=== PATIENT | male | born 1960 | race Caucasian/White ===

== ENCOUNTER 2020-08-02 15:05 | Inpatient (IN) | payer MEDICAID ==
[~2020-08-02] VITALS: Ht 180.3 cm; Wt 96.6 kg
[2020-08-02 20:40] VITALS: BP 153/82
[2020-08-02] MEDS ORDERED: Z GUARD REMEDY 2 OZ OINT TP PRN (22:00)
[2020-08-02] MEDS ORDERED: ONDANSETRON HCL/PF 4 MG/2 ML VIAL IVP PRN (22:00)
[2020-08-02] MEDS ORDERED: ZOLPIDEM TARTRATE 5 MG TABLET PO PRN (22:00)
[2020-08-02] MEDS: IV NS 0.9% 1,000 ML IV PRN (22:44)
[2020-08-02] MEDS: ENOXAPARIN SODIUM 40 MG/0.4 ML DISP.SYRIN SQ SCH (22:45)
--- NOTE | 2020-08-02 23:17 | NUR ---
MS/TELE/RN AT 2030, RECEIVED PATIENT FROM [facility] VIA [facility]. PATIENT WAS AWAKE, ALERT, ORIENTED, COMFORTABLE, NO C/O PAIN, NO DISTRESS NOTED. DR. NICK ARTEAGA WAS NOTIFIED OF PATIENT'S ARRIVAL TO THE FLOOR, ORDERS WERE NOTED AND CARRIED OUT. ADMISSION WAS DONE PER PROTOCOL, PATIENT REFUSED SKIN ASSESSMENT, PLAN OF CARE WAS DISCUSSED, NPO AFTER MIDNIGHT FOR POSSIBLE PROCEDURE TOMORROW, PATIENT VERBALISED UNDERSTANDING AND AGREEMENT TO THE PLAN OF CARE, TAUGHT THE USE OF CALL LIGHT AND ENCOURAGED TO CALL FOR ANY ASSISTANCE, PATIENT VERBALISED UNDERSTANDING, PLACED CALL LIGHT WITHIN REACH. FALL PRECAUTIONS PER PROTOCOL, WILL MONITOR.
[2020-08-02] MEDS: NITROGLYCERIN PACKET 1 GM PACKET TOP SCH (23:58)
[2020-08-03] VITALS: BP 143/84
[2020-08-03] MEDS ORDERED: AMLO-213 PO (01:39)
[2020-08-03] MEDS: ACETAMINOPHEN 325 MG TABLET PO PRN ×2 (03:27→08:27)
--- NOTE | 2020-08-03 03:40 | NUR ---
MS/TELE/RN TEMP= 102.5, TYLENOL 650 MG PO WAS GIVEN, COOLING MEASURES STARTED. DR. ROMERO WAS NOTIFIED VIA SECURE MESSAGING. WILL MONITOR. TEMPERATURE.
[2020-08-03 04:00] VITALS: BP 153/86
--- NOTE | 2020-08-03 04:09 | NUR ---
MS/TELE/RN RECEIVED ORDER OF BLOOD CULTURE FROM DR. NICK ARTEAGA. ORDER CARRIED OUT.
[2020-08-03 04:55] LABS: BASOPHILS # (AUTO) 0.1 /CMM (0.0-0.2); BASOPHILS % (AUTO) 0.8 % (0.0-2.0); EOSINOPHILS % (AUTO) 0.2 % (0.0-6.0); HEMATOCRIT 37 % (39-51); HEMOGLOBIN 12.4 g/dL (13.5-17.5); LYMPHOCYTES # (AUTO) 0.6 /CMM (0.8-4.8); LYMPHOCYTES % (AUTO) 7.7 % (20.0-44.0); MEAN CORPUSCULAR HGB CONC 34 g/dl (31.0-36.0); MEAN CORPUSCULAR VOLUME 103 fL (80-96); MONOCYTES # (AUTO) 0.4 /CMM (0.1-1.30); MONOCYTES % (AUTO) 4.9 % (2.0-12.0); NEUTROPHILS # (AUTO) 6.4 /CMM (1.8-8.9); NEUTROPHILS % (AUTO) 86.4 % (43.0-81.0); PLATELET COUNT (AUTO) 253 /CMM (150-450); RED BLOOD CELL COUNT(AUTO) 3.59 MIL/uL (4.5-6.0); WHITE BLOOD COUNT (AUTO) 7.4 K/uL (4.3-11.0)
[2020-08-03 05:32] LABS: ALBUMIN 2.9 g/dL (3.4-5.0); BILIRUBIN,TOTAL 0.9 mg/dL (0.2-1.0); CALCIUM, SERUM 8.5 mg/dL (8.5-10.1); MAGNESIUM 1.7 mg/dL (1.8-2.4); PHOSPHORUS 2.8 mg/dL (2.5-4.9); POTASSIUM 3.5 mmol/L (3.5-5.1); TOTAL PROTEIN, SERUM 6.6 g/dL (6.4-8.2)
[2020-08-03 05:43] LABS: THYROID STIMULATING HORMONE 1.148 uIU/mL (0.358-3.74)
[2020-08-03] MEDS: NITROGLYCERIN PACKET 1 GM PACKET TOP SCH ×3 (05:54→17:44)
--- NOTE | 2020-08-03 06:01 | NUR ---
MS/TELE/RN TEMP 99.7, CONTINUE WITH COOLING MEASURES. PATIENT IS AWAKE, ALERT, ORIENTED, COMFORTABLE, NO SIGNS OF DISTRESS NOTED, IVF INFUSING, ALL NEEDS ATTENDED AT THIS TIME, WILL CONTINUE TO MONITOR.
[2020-08-03 08:00] VITALS: BP 134/72
--- NOTE | 2020-08-03 08:00 | NUR ---
RN OPENING NOTE PT IS AWAKE IN BED RESTING. A/O X4 AND GERMAN SPEAKING. CURRENTLY ON RA WITH NO RESPIRATORY DISTRESS PRESENT. O2 SAT >95%. ON EXTERNAL GENERAL REPAIR MECHANIC. NO EDEMA PRESENT. SELF AMBULATORY WITH BATHROOM PRIVILEGES. PT EXPLAINED NO SKIN ISSUES BUT REFUSED SKIN ASSESSMENT. IV PRESENT ON L FA 20G AND FLUSHES WELL. TYLENOL GIVEN FOR 100.2 F TEMPERATURE. SAFETY MEASURES IN PLACE. SIDE RAILS RAISED. BED LOWERED. CALL LIGHT WITHIN REACH. WILL CONTINUE TO MONITOR.
[2020-08-03 08:16] LABS: IRON, SERUM 11 ug/dl (50-175); TOTAL IRON BINDING CAPACITY 251 ug/dl (250-450)
[2020-08-03] MEDS: Magnesium 1GM/D5W 100ML PREMIX 100 ML IV SCH ×2 (08:27→10:03)
[2020-08-03] MEDS: ASPIRIN EC 81 MG TABLET.DR PO SCH (08:27)
[2020-08-03] MEDS: PANTOPRAZOLE 40 MG TABLET.DR PO SCH (08:27)
[2020-08-03 08:49] LABS: FERRITIN 688 ng/mL (8-388)
[2020-08-03] MEDS ORDERED: LORAZEPAM INJ 2 MG/ML VIAL IV PRN (09:00)
[2020-08-03] MEDS: FOLIC ACID 1 MG TABLET PO SCH (10:03)
[2020-08-03] MEDS ORDERED: IOHEXOL-350 100 ML VIAL IV ONE ×2 (11:41→12:24)
[2020-08-03] MEDS ORDERED: NITROGLYCERIN 0.4 MG/TAB BOTTLE ONE (11:41)
[2020-08-03] MEDS ORDERED: METOPROLOL TARTRATE INJ 5 MG/5 ML AMPUL ONE ×4 (11:41→12:05)
[2020-08-03] MEDS ORDERED: IV NS 0.9% 250 ML IV ONE (11:41)
[2020-08-03] MEDS ORDERED: CT SWABBABLE VALVE TRANS SET 1 EA INFUS.SET MC ONE (11:41)
[2020-08-03] MEDS: METOPROLOL TARTRATE 50 MG TABLET PO SCH ×2 (11:44→17:44)
--- NOTE | 2020-08-03 11:44 | NUR ---
RN NOTE PT TAKEN FOR CTCA. CONSENTS SIGNED. UNABLE TO GIVE PO MEDS FOR 1200.
[2020-08-03] MEDS: METOPROLOL TARTRATE INJ 5 MG/5 ML AMPUL IVP PRN ×10 (11:50→12:35)
[2020-08-03] MEDS ORDERED: NITROGLYCERIN 0.4 MG/TAB BOTTLE SL ONE (12:00)
[2020-08-03] MEDS ORDERED: METOPROLOL TARTRATE INJ 5 MG/5 ML AMPUL IVP ONE (12:30)
--- NOTE | 2020-08-03 12:41 | NUR ---
Report given to CAMRYN Walker for GERARDO. Patient is transported to [facility] via wheelchair in stable condition.
[2020-08-03] MEDS: MORPHINE SULFATE INJ 2 MG/ML DISP.SYRIN IV PRN ×2 (12:55→17:44)
[2020-08-03 16:00] VITALS: BP 135/82
--- NOTE | 2020-08-03 18:14 | NUR ---
RN CLOSING NOTE PT IS AWAKE IN BED RESTING. A/O X4 AND ALBANIAN SPEAKING. CURRENTLY ON RA WITH NO RESPIRATORY DISTRESS PRESENT. O2 SAT >95%. ON EXTERNAL MANAGER FURNITURE. NO EDEMA PRESENT. SELF AMBULATORY WITH BATHROOM PRIVILEGES. PT EXPLAINED NO SKIN ISSUES BUT REFUSED SKIN ASSESSMENT. IV PRESENT ON L FA 20G AND FLUSHES WELL. IV PRESENT OF R FA 18G AND FLUSHES WELL. SAFETY MEASURES IN PLACE. SIDE RAILS RAISED. BED LOWERED. CALL LIGHT WITHIN REACH. REPORT TO BE GIVEN TO NIGHT NURSE GERARDO.
[2020-08-03 20:00] VITALS: BP 131/81
--- NOTE | 2020-08-03 20:55 | NUR ---
MS/TELE/RN BLOOD CULTURE AEROBIC BOTTLE RESULT IS GRAM NEGATIVE RODS, INFORMED DR. MOSS, ORDER OF PIPERACILLIN/TAZOBACTAM 3.375 IVPB Q 6 HOURS WAS NOTED IN THE CHART. PER DR. MOSS HE CALLED TOSHIA MCNALLY, FOR CONSULT.
[2020-08-03] MEDS: IV NS 0.9% 1,000 ML IV PRN (21:17)
[2020-08-03] MEDS: ENOXAPARIN SODIUM 40 MG/0.4 ML DISP.SYRIN SQ SCH (21:34)
[2020-08-03] MEDS ORDERED: PIPERACILLIN /TAZOBACTAM 3.375 G VIAL IV ONE (23:52)
[2020-08-04] VITALS: BP 128/77
[2020-08-04] MEDS: PIPERACILLIN /TAZOBACTAM 3.375 G in IV D5W 50 ML IV SCH ×2 (00:03→05:56)
[2020-08-04] MEDS: METOPROLOL TARTRATE 50 MG TABLET PO SCH ×5 (00:04→23:39)
[2020-08-04] MEDS: MORPHINE SULFATE INJ 2 MG/ML DISP.SYRIN IV PRN ×2 (00:12→05:27)
[2020-08-04 04:00] VITALS: BP 145/69
[2020-08-04] MEDS ORDERED: PIPERACILLIN /TAZOBACTAM 3.375 G VIAL IV ONE (05:35)
[2020-08-04 06:09] LABS: BASOPHILS # (AUTO) 0.1 /CMM (0.0-0.2); BASOPHILS % (AUTO) 0.9 % (0.0-2.0); EOSINOPHILS % (AUTO) 0.5 % (0.0-6.0); HEMATOCRIT 39 % (39-51); HEMOGLOBIN 12.9 g/dL (13.5-17.5); LYMPHOCYTES # (AUTO) 1.1 /CMM (0.8-4.8); LYMPHOCYTES % (AUTO) 11.8 % (20.0-44.0); MEAN CORPUSCULAR HGB CONC 34 g/dl (31.0-36.0); MEAN CORPUSCULAR VOLUME 103 fL (80-96); MONOCYTES # (AUTO) 0.8 /CMM (0.1-1.30); MONOCYTES % (AUTO) 8.9 % (2.0-12.0); NEUTROPHILS # (AUTO) 7.1 /CMM (1.8-8.9); NEUTROPHILS % (AUTO) 77.9 % (43.0-81.0); PLATELET COUNT (AUTO) 216 /CMM (150-450); RED BLOOD CELL COUNT(AUTO) 3.75 MIL/uL (4.5-6.0); WHITE BLOOD COUNT (AUTO) 9.1 K/uL (4.3-11.0)
--- NOTE | 2020-08-04 06:11 | NUR ---
MS/TELE/RN PATIENT IS AWAKE, LYING IN BED, COMFORTABLE NO DISTRESS NOTED, IVF INFUSING WELL, ALL NEEDS ATTENDED AT THIS TIME, WILL CONTINUE TO MONITOR.
[2020-08-04 06:43] LABS: ALANINE AMINOTRANSFERASE 171 U/L (12-78); ALBUMIN 2.8 g/dL (3.4-5.0); ALKALINE PHOSPHATASE 87 U/L (46-116); ASPARTATE AMINOTRANSFERASE 47 U/L (15-37); BILIRUBIN,TOTAL 1.4 mg/dL (0.2-1.0); CALCIUM, SERUM 8.2 mg/dL (8.5-10.1); CARBON DIOXIDE 18 mmol/L (21-32); CHLORIDE 101 mmol/L (98-107); CREATININE 0.9 mg/dL (0.6-1.3); GLUCOSE 128 mg/dL (74-106); MAGNESIUM 2.2 mg/dL (1.8-2.4); PHOSPHORUS 2.3 mg/dL (2.5-4.9); POTASSIUM 3.8 mmol/L (3.5-5.1); SODIUM SERUM 133 mmol/L (136-145); TOTAL PROTEIN, SERUM 6.8 g/dL (6.4-8.2); UREA NITROGEN, BLOOD 11 mg/dL (7-18)
--- NOTE | 2020-08-04 07:58 | NUR ---
STRAIGHTENING PRESS OPERATOR HELPER OPENING NOTE PATIENT IN BED RESTING, PATIENT IS IN NO ACUTE DISTRESS. PATIENT IS ON ROOM AIR TOLERATING WELL. PATIENT IS ON TELE MONITOR READING SINUS RHYTHM 62 WITH OCCASIONAL PVCs. SAFETY PRECAUTIONS ARE ON, BED IS LOCKED IN THE LOWEST POSITION, WITH SIDE RAILS UP, CALL LIGHT WITHIN REACH. WILL CONTINUE TO MONITOR CLOSELY.
[2020-08-04 08:00] VITALS: BP 111/65
[2020-08-04] MEDS: ASPIRIN EC 81 MG TABLET.DR PO SCH (09:02)
[2020-08-04] MEDS: PANTOPRAZOLE 40 MG TABLET.DR PO SCH (09:03)
[2020-08-04] MEDS: AMLODIPINE BESYLATE 10 MG TABLET PO SCH (09:03)
[2020-08-04] MEDS: FOLIC ACID 1 MG TABLET PO SCH (09:03)
[2020-08-04] MEDS: THIAMINE HCL 100 MG TABLET PO SCH (09:03)
[2020-08-04] MEDS: PIPERACILLIN /TAZOBACTAM 3.375 G in IV D5W 100 ML IV SCH ×2 (09:06→17:19)
[2020-08-04] MEDS: HYDROCODONE/APAP 5/325MG TABLET PO PRN ×4 (09:13→23:40)
[2020-08-04] MEDS ORDERED: PIPERACILLIN /TAZOBACTAM 3.375 G in IV D5W 50 ML IV SCH (12:00)
--- NOTE | 2020-08-04 15:24 | NUR ---
SS Consult: SS Consult requested for ETOH detox. The pt. is a 59-year-old male who states he has been abusing ETOH since September 2019 when he broke his arm. Patient stated he began using alcohol as a pain killer. Patient stated that he would drink 750 ml of Vodka daily. Pt. stated that he has been sober for 2 weeks. However, his body is not feeling okay. SW validated pt.s struggle with detox & sobriety. SW offered pt. referral to rehab facilities or outpatient Tx. and pt. refused stating, I have quit worse things, I can quit alone. SW provided pt. with addiction resources so he may set up services if he changes his mind. Pt. accepted the resources. Pt. states he lives at home alone [[id number] [place] [address]] and will return there when ready for d/c. The pt. denies SI/HI and denies hallucinations. ADDICTION RESOURCES For Drugs and Alcohol [facility] Substance Abuse Helpline([facility] Outpatient treatment, residential treatment, recovery support for youth and adults [facility] www.actionfamilycounselingFuture [employer] [facility] Teen programs for drug/alcohol education and support [facility]. Program for adults, sliding scale provides support and education Hyun Letao www.CloudFloor.org [place]; Outpatient/residential treatment programs; transition to sober living [facility] www.cri-help.org [place]; Outpatient and residential treatment programs; transition to sober living [facility] Abelardo Dang; Outpatient education and supportive programs for teens and adults [facility] www.oasiswomensrecovery.org Izabela; Residential treatment and work program for females only [place] www.[facility].org [place]: Outpatient/residential treatment program for teens and young adults [facility] www.[facility].org [facility] Detox, inpatient, outpatient for adults and youth [facility], [facility]. [place]; Outpatient programs and referrals to community residential programs. Alcoholics Anonymous -sfv information and meeting and schedules www.aa-intergroup.org Wc-Pxfz-Zptlfex https://al-anon.org/ Man[place] support groups for family of alcoholics. Marijuana Anonymous www.madistrict6.org -sfv listing of meetings Narcotics Anonymous www.na.org SOBER LIVING RESOURCES [facility] www.soberhousing.net A non-profit agency that provides resources to recovery and sober living homes throughout [place], [facility] Sober Living Homes: A Work in Progress, [facility] Recovery Advocates, [facility] Womens Sober Living Homes: [facility] x [address] [place], [place] [facility] Living Homes: [facility] Counseling--Outpatient [facility] [place] [address] [place] [address] (Specializes in in-depth psychotherapy for emotional distress: anxiety, depression, interpersonal conflicts, life transitions, childhood abuse) [facility] [address] [place] [address] (Assist with solving problem marital difficulties, separation & divorce, aging parents, & grief, chronic & terminal illness) [facility] [address] [place] [address] (Deal with loss & grief, anxiety, marital difficulties) Homebound/Mental Health Services [address], [address] [place] [address] (Provide in-home mental services to people who are incapable of leaving their homes) Organization for Needs of the Elderly Senior Service/Resource Center [address] [place] [address] [facility] [address] [place], [place] [address] PSYCHIATRIC OUTPATIENT SERVICES [facility] Partial Hospitalization and Intensive Outpatient Program (Managed Care and Figue[place]o Only)[address] [facility] [phone] [facility] Partial Hospitalization and Outpatient [id number] [facility] [address] [place], [place] [phone] [facility] Partial Hospitalization and Outpatient [address] [place], [place] [phone] [facility] [id number] [facility]. [address] [place], [place] [phone] [facility] Partial Hospitalization and Outpatient Wzuikeh11944 [place], [phone] Crisis and Hotline Telephone Numbers 24-Hour service unless stated [place] Crisis Hotlines: [facility] Mental Health/Crisis Line........[phone] Suicide Prevention Center (24 Hours).......[phone] Suicide Prevention Crisis Center.......[phone] (24 Hours) Assaults Against Women Hotline.........591.588.2842 (24 Hours -- [facility]) Women and Children Crisis M[facility]...........[phone] (24 Hours) Child Abuse Hotline............132.504.7667 [facility] Children[facility] Rape Treatment Center (24 Hours)..........[phone] Alcoholics Anonymous (24 Hours)..........[phone] Cocaine Anonymous (24 Hours)............[phone] Narcotics Anonymous (24 Hours)..........[phone] [facility] [address] [place] [address] Mental Health Services Alycia L[facility] [place] [address] [place] [address] Services: Outpatient therapy for children, teens, young adults, adults, older adults, and families; Psychiatric services, medication support Crisis and Hotline Telephone Numbers 24-Hour service unless stated [place] Crisis Hotlines: [facility]. Mental Health/Crisis Line........[phone] Suicide Prevention Center (24 Hours).......[phone] Suicide Prevention Crisis Center.......[phone] (24 Hours) Alcoholics Anonymous (24 Hours)..........[phone] [facility] Crisis Hotlines: Alcohol and Drug Helpline - Provides referrals to local facilities where adolescents and adults can seek help. Brief intervention. [facility] Helpline National [place] for the Mentally Ill 5-575-776-RAVINDER National Youth Crisis Hotline [facility]. Provides free information on specific disorders, referral directory to mental health providers, national directory of local mental health associations (M-F, 9-5 EST) National [place] of Mental Health Information Line: Provide sinformation and literature on mental illness by disorder-for professionals and general public.
[2020-08-04 16:00] VITALS: BP 149/60
[2020-08-04 16:26] LABS: OCCULT BLOOD STOOL NEGATIVE (NEGATIVE)
[2020-08-04 16:33] LABS: BILIRUBIN,URINE MODERATE (NEGATIVE); COLOR,URINE YELLOW (YELLOW); LEUKOCYTE ESTERASE ,URINE NEGATIVE (NEGATIVE); NITRITE, URINE NEGATIVE (NEGATIVE); PROTEIN,URINE 30 mg/dl (NEGATIVE); UGLUCOSE NEGATIVE (NEGATIVE)
[2020-08-04 17:00] LABS: BACTERIA,URINE Few /HPF (None Seen); RBC,URINE 0-2 /HPF (0-2); SQUAMOUS EPITHELIAL CELL,UR Few /HPF (None Seen); URINE AMORPHOUS URATE Moderate /HPF (None Seen); WBC,URINE 0-2 /HPF (0-3)
[2020-08-04] MEDS ORDERED: K PHOS NEUTRAL 250 MG TABLET PO ONE (17:00)
[2020-08-04] MEDS: IV NS 0.9% 1,000 ML IV PRN (17:19)
--- NOTE | 2020-08-04 18:39 | NUR ---
TURN DOWN ATTENDANT CLOSING NOTE PATIENT IN BED RESTING, PATIENT IS IN NO ACUTE DISTRESS. PATIENT IS ON ROOM AIR TOLERATING WELL. PATIENT IS ON TELE MONITOR READING SINUS RHYTHM 71 WITH OCCASIONAL PVCs. SAFETY PRECAUTIONS ARE ON, BED IS LOCKED IN THE LOWEST POSITION, WITH SIDE RAILS UP, CALL LIGHT WITHIN REACH. ENDORSE PATIENT TO SUPERVISOR ROLLING ROOM NURSE FOR GERARDO
[2020-08-04 20:00] VITALS: BP 127/77
--- NOTE | 2020-08-04 20:18 | NUR ---
MS/TELE/RN RECEIVED PATIENT SITTING AT EDGE OF BED AWAKE, ALERT, ORIENTED, COMFORTABLE, NO SIGNS OF DISTRESS NOTED, FAMILY MEMBERS AT BEDSIDE. WILL MONITOR.
[2020-08-04] MEDS: ENOXAPARIN SODIUM 40 MG/0.4 ML DISP.SYRIN SQ SCH (21:38)
--- NOTE | 2020-08-04 21:41 | NUR ---
MS/TELE/RN DALI, MEDIA PRODUCER ID AT BEDSIDE TALKING TO THE PATIENT.
[2020-08-04] MEDS: CHLORHEXIDINE GLUCONATE 15 ML UDC MM SCH (23:38)
[2020-08-05 00:01] VITALS: BP 146/94
[2020-08-05] MEDS: PIPERACILLIN /TAZOBACTAM 3.375 G in IV D5W 100 ML IV SCH ×2 (02:12→09:39)
[2020-08-05] MEDS ORDERED: VANCOMYCIN 1.5 GM in IV D5W 500ml IV ONE (03:00)
[2020-08-05] MEDS: HYDROCODONE/APAP 5/325MG TABLET PO PRN ×2 (03:22→07:25)
[2020-08-05] MEDS ORDERED: VANCOMYCIN 1 GM VIAL ONE ×2 (03:37→03:39)
[2020-08-05 05:22] VITALS: BP 128/78
--- NOTE | 2020-08-05 05:36 | NUR ---
MS/TELE/RN PATIENT C/O DISCOMFORT AT RT. F/A IV SITE, REMOVED IV AND INSERTED NEW IV AT RT. HAND G22.
[2020-08-05 06:02] LABS: BASOPHILS % (AUTO) 0.3 % (0.0-2.0); EOSINOPHILS % (AUTO) 0.8 % (0.0-6.0); HEMATOCRIT 38 % (39-51); HEMOGLOBIN 12.7 g/dL (13.5-17.5); LYMPHOCYTES # (AUTO) 0.9 /CMM (0.8-4.8); LYMPHOCYTES % (AUTO) 8.7 % (20.0-44.0); MEAN CORPUSCULAR HGB CONC 34 g/dl (31.0-36.0); MEAN CORPUSCULAR VOLUME 103 fL (80-96); MONOCYTES # (AUTO) 0.8 /CMM (0.1-1.30); NEUTROPHILS # (AUTO) 8.5 /CMM (1.8-8.9); NEUTROPHILS % (AUTO) 82.2 % (43.0-81.0); PLATELET COUNT (AUTO) 210 /CMM (150-450); RED BLOOD CELL COUNT(AUTO) 3.68 MIL/uL (4.5-6.0); WHITE BLOOD COUNT (AUTO) 10.3 K/uL (4.3-11.0)
[2020-08-05] MEDS: METOPROLOL TARTRATE 50 MG TABLET PO SCH ×3 (06:04→17:10)
--- NOTE | 2020-08-05 06:07 | NUR ---
MS/TELE/RN PATIENT IS AWAKE, ALERT, COMFORTABLE, NO C/O PAIN, NO DISTRESS NOTED, CALL LIGHT IN REACH, ALL NEEDS ATTENDED AT THIS TIME, WILL CONTINUE TO MONITOR.
[2020-08-05 07:08] LABS: CALCIUM, SERUM 8.3 mg/dL (8.5-10.1); CREATININE 0.9 mg/dL (0.6-1.3); PHOSPHORUS 2.6 mg/dL (2.5-4.9); POTASSIUM 3.6 mmol/L (3.5-5.1)
--- NOTE | 2020-08-05 07:23 | NUR ---
RN NOTES SEEN PATIENT RESTING IN BED, AWAKE AND VERBALLY RESPONSIVE. BREATHING EVEN AND UNLABORED, NOT IN ACUTE DISTRESS, ON ROOM AIR. COMPLAINT OF ABDOMINAL PAIN, 09/04, REQUESTED FOR PAIN MEDICATION. PRN NORCO AVAILABLE. IV FLUID AND ATB INFUSING AT THIS TIME.
[2020-08-05] MEDS: PANTOPRAZOLE 40 MG TABLET.DR PO SCH (07:35)
[2020-08-05 08:00] VITALS: BP 140/77
[2020-08-05] MEDS: AMLODIPINE BESYLATE 10 MG TABLET PO SCH (08:57)
[2020-08-05] MEDS: CHLORHEXIDINE GLUCONATE 15 ML UDC MM SCH ×2 (08:58→16:21)
[2020-08-05] MEDS: THIAMINE HCL 100 MG TABLET PO SCH (08:58)
[2020-08-05] MEDS: NYSTATIN (PYXIS) 500,000 UNIT/5 ML ORAL.SUSP PO SCH ×3 (08:58→16:21)
[2020-08-05] MEDS: FOLIC ACID 1 MG TABLET PO SCH (08:58)
[2020-08-05] MEDS: ASPIRIN EC 81 MG TABLET.DR PO SCH (08:58)
--- NOTE | 2020-08-05 09:13 | NUR ---
RN NOTES AM MEDS GIVEN; PATIENT STILL COMPLAINT OF ABDOMINAL PAIN BUT IS RELIEVED W/ OCCASIONAL STANDING AND POSITIONAL CHANGES, AGGRAVATED WHEN SITTING DOWN. PATIENT REQUESTED IF MORPHINE CAN BE GIVEN TO HIM, WILL ADMINISTER INDICATED FOR PAIN. PATIENT REMINDED TO PERFORM NON-PHARMACOLOGIC MEASURES FOR PAIN MGT, VERBALIZED UNDERSTANDING.
[2020-08-05] MEDS: MORPHINE SULFATE INJ 2 MG/ML DISP.SYRIN IV PRN (09:40)
--- NOTE | 2020-08-05 11:02 | NUR ---
RN NOTES DR. JARAMILLO AT BEDSIDE TO SEE THE PATIENT.
[2020-08-05] MEDS ORDERED: CT SWABBABLE VALVE TRANS SET 1 EA INFUS.SET MC ONE (11:23)
[2020-08-05] MEDS ORDERED: IV NS 0.9% 250 ML IV ONE (11:23)
[2020-08-05] MEDS ORDERED: IOHEXOL-300 100 ML VIAL IV ONE (11:23)
--- NOTE | 2020-08-05 11:24 | NUR ---
RN NOTES DR. JARAMILLO W/ ORDER FOR CT ABD/PELVIS W/ CONTRAST. PROCEDURE UNDERSTOOD BY PATIENT AND CONSENT FORM SIGNED BY PATIENT AND WITNESSED BY ME. KOLTON, COIL REWIND MACHINE OPERATOR, AT BEDSIDE NOW TO PICKUP PATIENT VIA WHEELCHAIR FOR PROCEDURE.
--- NOTE | 2020-08-05 11:55 | NUR ---
RN NOTES PATIENT RETURNED FROM CT PROCEDURE VIA WHEELCHAIR, ACCOMPANIED BY 1 NEONATAL SOCIAL WORKER.
[2020-08-05] MEDS ORDERED: LEVOFLOXACIN 500 MG /D5W 100ML 500 MG in PREMIX 1 EA IV SCH (12:00)
--- NOTE | 2020-08-05 12:00 | NUR ---
RN NOTES LAB MADE AWARE FOR BLOOD DRAW FOR BLOOD CULTURE X2; LEVOFLOXACIN ATB WITHHELD UNTIL BLOOD HAS BEEN DRAWN.
--- NOTE | 2020-08-05 13:02 | NUR ---
RN NOTES INFORMED DR. WU ABOUT PATIENT'S CONCERN W/ PAIN MGT; PER DR. WU, HE INCREASED HIS MORPHINE TO 4MG.
[2020-08-05] MEDS: MORPHINE SULFATE INJ 4 MG/ML DISP.SYRIN IV PRN ×2 (13:32→16:58)
--- NOTE | 2020-08-05 13:42 | NUR ---
RN NOTES PRN MORPHINE ADMINISTERED TO PATIENT INDICATED D/T COMPLAINT OF PAIN; PATIENT CURRENTLY LYING DONE PRONE IN BED. PATIENT STATES THAT POSITIONAL CHANGES ALLEVIATE PAIN. ADVISED TO AMBULATE W/IN THE ROOM FOR SHORT DISTANCE TO HELP W/ PAIN MGT. WILL CONTINUE TO MONITOR.
--- NOTE | 2020-08-05 15:36 | NUR ---
RN NOTES INFORMED PHARMACY PATIENT'S VANCOMYCIN 1.5GM NOT IN THE BIN/CASETTE NOR INSIDE THE REFRIGERATOR.
[2020-08-05 16:00] VITALS: BP 140/94
[2020-08-05] MEDS: VANCOMYCIN 1.5 GM in IV D5W 500 ML IV SCH (16:20)
--- NOTE | 2020-08-05 17:44 | NUR ---
RN NOTES DR. WU ALREADY AWARE OF CT RESULT; WILL INFORM DR. JARAMILLO.
[2020-08-05] MEDS ORDERED: IV NS 0.9% 500 ML BAG IV ONE (18:30)
[2020-08-05] MEDS: IV D5 LR 1,000 ML IV PRN (18:48)
[2020-08-05] MEDS ORDERED: HEPARIN SODIUM, PORCINE 5000 UNITS/1 ML VIAL IV ONE (19:15)
[2020-08-05] MEDS: HEPARIN INFUSION/D5W 500 ML IV PRN (19:22)
--- NOTE | 2020-08-05 19:22 | NUR ---
RN NOTES SPOKE W/ KAE, PHARMACIST, MADE AWARE OF IV SPREADSHEET DOSE RATE OF 8000, SUPPOSED TO BE 1800UNITS/HR. WILL ENDORSE TO RIDES SUPERVISOR RN. CURRENT DOSE RATE INFUSING IS 1800UNITS/HR.
--- NOTE | 2020-08-05 19:59 | NUR ---
RN NOTES SPOKE W/ KAE FROM PHARMACY AND INQUIRED ABOUT LOVENOX FOR PATIENT; PER KAE, HE WILL D/C LOVENOX. ENDORSED TO GARNISHER RN.
[2020-08-05 20:00] VITALS: BP_SYST 137; BP_DIAS 70; BP_DIAS 76
--- NOTE | 2020-08-05 20:00 | NUR ---
MS RN NOTES RECEIVED REPORT FROM JAS,PATIENT LYING COMFORTABLY ON BED,A/O X4,BREATHING REGULAR,NOT IN ANY FORM OF DISTRESS.O2 SAT 98% ON RA.PRESENT IVF D5LR AT 75ML/HR RATE INFUSING WELL ON LEFT ARM VIA IV PUMP,SITE PATENT,ON RIGHT ARM,HEPARIN DRIP INFUSING AT 1800 UNITS VIA IV PUMP DUE CT ABDOMEN WITH CONTRAST RESULTS ASSOCIATED WITH IMV THROMBOSIS.WILL MONITOR FOR BLEEDING.PLATELETS AND APTT WITH IN NORMAL LIMITS.CALL LIGHT IN REACH,NEEDS ANTICIPATED.
[2020-08-05] MEDS: HYDROMORPHONE 1 MG/1 ML DISP.SYRIN IV PRN (20:13)
--- NOTE | 2020-08-05 20:13 | NUR ---
MS RN NOTES PAIN MANAGEMENT C/O LEFT LOWER ABDOMINAL PAIN 9/10 ON PAIN SCALE,MEDICATED WITH DILAUDID 1MG IV ORDERED.WILL MONITOR/RE ASSESS FOR RELIEF.
[2020-08-05] MEDS ORDERED: MEROPENEM 500 MG VIAL IV ONE (21:50)
[2020-08-05] MEDS: MEROPENEM 500 MG in IV NS 0.9% 50 ML IV SCH (21:52)
--- NOTE | 2020-08-05 22:15 | NUR ---
MS RN NOTES TUMBLING INSTRUCTOR NAME SAMUEL,PICC LINER CAME TO INSERT PICC LINE ON THIS PATIENT FOR HEPARIN DRIP INFUSION
--- NOTE | 2020-08-05 22:30 | NUR ---
MS COWAN NOTES PICC LINE INSERTED BY SAMUEL POPE ON RIGHT UPPER ARM TWO PORTS.PROCEDURE DONE ASEPTICALLY,HEPARIN DRIP CONNECTED FOR INFUSION
--- NOTE | 2020-08-05 22:51 | NUR ---
MS RN NOTES SALINE LEFT HAND REMOVED,WITH SLIGHT REDNESS NOTED
[2020-08-06] MEDS: METOPROLOL TARTRATE 50 MG TABLET PO SCH ×5 (00:28→17:39)
--- NOTE | 2020-08-06 00:34 | NUR ---
MS RN NOTES BP 143/79,PULSE-79,DUE LOPRESSOR 50MG PO GIVEN WITH SIPS OF WATER
[2020-08-06] MEDS: HYDROMORPHONE 1 MG/1 ML DISP.SYRIN IV PRN ×2 (00:36→05:06)
--- NOTE | 2020-08-06 00:36 | NUR ---
MS RN NOTES PAIN MANAGEMENT C/O LEFT LOWER ABDOMINAL PAIN 8/10 ON PAIN SCALE,DILAUDID 1MG IV GIVEN ORDERED.
[2020-08-06 03:31] LABS: BASOPHILS # (AUTO) 0.1 /CMM (0.0-0.2); BASOPHILS % (AUTO) 0.8 % (0.0-2.0); EOSINOPHILS % (AUTO) 0.8 % (0.0-6.0); HEMATOCRIT 36 % (39-51); HEMOGLOBIN 12.1 g/dL (13.5-17.5); LYMPHOCYTES # (AUTO) 1.1 /CMM (0.8-4.8); LYMPHOCYTES % (AUTO) 10.2 % (20.0-44.0); MEAN CORPUSCULAR HGB CONC 34 g/dl (31.0-36.0); MEAN CORPUSCULAR VOLUME 101 fL (80-96); MONOCYTES # (AUTO) 0.8 /CMM (0.1-1.30); MONOCYTES % (AUTO) 7.4 % (2.0-12.0); NEUTROPHILS # (AUTO) 9.1 /CMM (1.8-8.9); NEUTROPHILS % (AUTO) 80.8 % (43.0-81.0); PLATELET COUNT (AUTO) 221 /CMM (150-450); RED BLOOD CELL COUNT(AUTO) 3.54 MIL/uL (4.5-6.0); WHITE BLOOD COUNT (AUTO) 11.3 K/uL (4.3-11.0)
--- NOTE | 2020-08-06 03:34 | NUR ---
MS RN NOTES PTT RESULTS THIS TIME 50.8,NO CHANGE IN RATE,ORDERED PTT TOMORROW MORNING.
[2020-08-06] MEDS: VANCOMYCIN 1.5 GM in IV D5W 500 ML IV SCH ×2 (03:35→16:00)
[2020-08-06 03:39] LABS: CREATININE 0.8 mg/dL (0.6-1.3); POTASSIUM 3.6 mmol/L (3.5-5.1)
--- NOTE | 2020-08-06 05:06 | NUR ---
MS RN NOTES AWAKE,C/O LEFT LOWER ABDOMINAL PAIN 8/10 ON PAIN SCALE,DILAUDID 1MG IV GIVEN ORDERED FOR SEVERE PAIN
[2020-08-06] MEDS ORDERED: MEROPENEM 500 MG VIAL IV ONE (05:09)
[2020-08-06] MEDS: MEROPENEM 500 MG in IV NS 0.9% 50 ML IV SCH ×3 (05:37→20:59)
--- NOTE | 2020-08-06 06:10 | NUR ---
MS RN NOTES IN ROOM AWAKE, WATCHING MOVIE ON HIS CELL PHONE,NO SOB,HEPARIN IN PROGRESS,NO ACTIVE BLEEDING NOTED.STILL WITH ON AND NON BEARABLE ABDOMINAL PAIN,MANAGE WITH DILAUDID 1MG IV ORDERED.ALL DUE MEDS ADMINISTERED.KEPT NPO EXCEPT MEDS.CALL LIGHT IN REACH,NEEDS ATTENDED.WILL ENDORSE TO DAY NURSE FOR GERARDO.
--- NOTE | 2020-08-06 07:10 | NUR ---
RN NOTES ENDORSEMENT OBTAINED FROM CARPET INSTALLATION SPECIALIST RN. PATIENT IN ROOM, AWAKE AND VERBALLY RESPONSIVE. BREATHING EVEN AND UNLABORED, ON ROOM AIR. CONTINUES ON HEPARIN DRIP, NO RATE CHANGE PER REPORT W/ NEXT PTT DRAW TOMORROW IN AM. PICC LINE PLACED LAST NIGHT. SAFETY PRECAUTIONS IN PLACE. WILL CONTINUE TO MONITOR.
--- NOTE | 2020-08-06 07:57 | NUR ---
RN NOTES SEEN BY DR. WU, UPDATED PATIENT W/ PLAN OF CARE, ORDERS NOTED.
[2020-08-06 08:00] VITALS: BP 115/92
[2020-08-06] MEDS: CHLORHEXIDINE GLUCONATE 15 ML UDC MM SCH ×2 (08:07→16:21)
[2020-08-06] MEDS: NYSTATIN (PYXIS) 500,000 UNIT/5 ML ORAL.SUSP PO SCH ×3 (08:07→16:21)
[2020-08-06] MEDS: THIAMINE HCL 100 MG TABLET PO SCH (08:07)
[2020-08-06] MEDS: FOLIC ACID 1 MG TABLET PO SCH (08:07)
[2020-08-06] MEDS: ASPIRIN EC 81 MG TABLET.DR PO SCH (08:07)
[2020-08-06] MEDS: PANTOPRAZOLE 40 MG TABLET.DR PO SCH (08:07)
[2020-08-06] MEDS: AMLODIPINE BESYLATE 10 MG TABLET PO SCH (08:08)
[2020-08-06] MEDS: MORPHINE SULFATE INJ 4 MG/ML DISP.SYRIN IV PRN ×4 (09:41→20:48)
[2020-08-06] MEDS: HEPARIN INFUSION/D5W 500 ML IV PRN (10:12)
--- NOTE | 2020-08-06 10:25 | NUR ---
RN NOTES STARTED 2ND BAG OF HEPARIN INFUSION; WITNESSED AND COSIGNED BY ANOTHER RN. CONTINUE SAME DOSE AND RATE UNTIL NEXT PTT.
--- NOTE | 2020-08-06 13:00 | NUR ---
RN NOTES PATIENT SEEN SLEEPING IN BED AT THIS TIME.
[2020-08-06] MEDS: IV D5 LR 1,000 ML IV PRN (13:46)
[2020-08-06 16:00] VITALS: BP 132/72
--- NOTE | 2020-08-06 16:29 | NUR ---
RN NOTES SPOKE W/ KAE, PHARMACIST, INFORMED ABOUT PATIENT'S VANCOMYCIN IV ATB. PER KAE, THE 1.5GM VANCO IS FOR NON-ADMIN, BUT OKAY TO GIVE THE 1GM-VANCOMYCIN.
[2020-08-06] MEDS: VANCOMYCIN 1 GM in IV D5W 250 ML IV SCH (16:42)
--- NOTE | 2020-08-06 18:06 | NUR ---
RN NOTES PATIENT SEEN UP IN CHAIR USING HIS CELLPHONE; STILL COMPLAINT OF ABDOMINAL PAIN BUT PAIN MEDICATION HELPED IN DECREASING PAIN. STILL ON NPO STATUS EXCEPT MEDS; DUE MEDS GIVEN TODAY AND TAKEN BY PATIENT. BREATHING EVEN AND UNLABORED, CONTINUES ON ROOM AIR. PROVIDED W/ WARM BLANKETS WHEN UP IN CHAIR. IVF BAG CHANGED TODAY.
--- NOTE | 2020-08-06 18:36 | NUR ---
RN NOTES PATIENT COMPLAINT OF HEARTBURN VERBALIZED BY JAE ABRAMS, CURRENTLY AT [facility]. DR. WU MADE AWARE W/ ORDER FOR MAALOX PRN. PATIENT DOES NOT WANT TO TAKE IT AT THIS TIME BUT WOULD LIKE TO HAVE IT AVAILABLE IN CASE HE GETS HEARTBURN AGAIN. WILL CONTINUE TO MONITOR.
[2020-08-06] MEDS ORDERED: MAG HYDROX/AL HYDROX/SIMETH 30 ML UDC PO PRN (19:00)
--- NOTE | 2020-08-06 19:30 | NUR ---
MS RN OPENING PATIENT IN BED. A/OX4. 2 DAUGHTERS IN THE ROOM. NO S/S OF DISTRESS. HEPARIN DRIP RUNNING AND D5LR RUNNING. SAFETY IN PLACE. WILL CONTINUE TO MONITOR.
[2020-08-06 20:00] VITALS: BP 126/88
--- NOTE | 2020-08-06 20:50 | NUR ---
MS RN NOTES PATIENT C/O 9/10 PAIN. GIVEN MORPHINE 4MG. WILL REASSESS AND CONTINUE TO MONITOR.
[2020-08-07] MEDS: METOPROLOL TARTRATE 50 MG TABLET PO SCH ×5 (00:01→23:28)
[2020-08-07] MEDS: VANCOMYCIN 1 GM in IV D5W 250 ML IV SCH ×2 (01:10→08:50)
[2020-08-07] MEDS: MORPHINE SULFATE INJ 4 MG/ML DISP.SYRIN IV PRN ×6 (01:53→23:16)
--- NOTE | 2020-08-07 01:55 | NUR ---
MS RN NOTES PATIENT C/O 10/10 PAIN. GIVEN MORPHINE 14MG. WILL REASSESS AND CONTINUE TO MONITOR.
[2020-08-07] MEDS: HEPARIN INFUSION/D5W 500 ML IV PRN ×4 (04:20→16:37)
--- NOTE | 2020-08-07 04:27 | NUR ---
MS RN NOTES STARTED NEW 500ML BAG OF HEPARIN AT THIS TIME. 1800 U/HR. RATE CALCULATION 36ML/HR. NO CHANGES, LAST BAG HANGED JUST FINISHED. NO BLEEDING NOTED. NEXT PTT @0500.
[2020-08-07] MEDS: MEROPENEM 500 MG in IV NS 0.9% 50 ML IV SCH (05:04)
--- NOTE | 2020-08-07 06:35 | NUR ---
MS RN NOTES PATIENT IN 10 PAIN. MORPHINE GIVEN. WILL REASSESS.
[2020-08-07 06:50] LABS: CALCIUM, SERUM 8.3 mg/dL (8.5-10.1); CREATININE 0.8 mg/dL (0.6-1.3); POTASSIUM 3.2 mmol/L (3.5-5.1)
--- NOTE | 2020-08-07 06:52 | NUR ---
MS RN CLOSING PATIENT IN BED WITH EYES CLOSED, EASY TO AROUSE. A/OX4. ABLE TO MAKE NEEDS KNOWN. ALL NEEDS ATTENDED. NO S/S OF RESPIRATORY DISTRESS. PAIN MANAGED WITH MEDICATION. ALL SCHED MEDS ADMINISTERED. URINE OUTPUT: 1050. HEPARIN DRIP RUNNING. NO CHANGES. PTT STILL PENDING. SAFETY KEPT IN PLACE THE WHOLE SHIFT: BED IN LOWEST, LOCKED POSITION; CALL LIGHT WITHIN REACH, NPO SIGN POSTED. WILL ENDORSE CARE TO MORNING SHIFT RN.
[2020-08-07 07:07] LABS: IMMUNOGLOBULIN A, SERUM 29 mg/dL (90-386); IMMUNOGLOBULIN G, SERUM 396 mg/dL (603-1613); IMMUNOGLOBULIN M, SERUM 354 mg/dL (20-172)
--- NOTE | 2020-08-07 07:32 | NUR ---
MS RN NOTES RESULTS OF PTT WAS 32.6 RECEIVED AT 0730. HEPARIN DRIP DOSAGE ADJUSTED TO 2200 U/HR. NEXT APTT @0130.
--- NOTE | 2020-08-07 07:35 | NUR ---
RN NOTES RECEIVED PATIENT IN BED, AWAKE, A&O X 4. ON ROOM AIR, TOLERATING WELL. ON HEPARIN DRIP AT 2200 UNITS/HR INFUSING VIA PICC LINE ON PATIENT'S LONNIE. WITH IV OF D5LRS 1L X 75CC/HR INFUSING WELL ON PATIENT'S RIGHT HAND. NO INFILTRATION NOTED, NO REDNESS NOTED. ON NPO EXCEPT MEDS REINFORCED. SAFETY PRECAUTIONS OBSERVED: BED ON LOWEST LOCKED POSITION. KEPT CALL LIGHT WITHIN EASY REACH. NO COMPLAINTS OF PAIN AT THIS TIME. WILL CONTINUE TO MONITOR CURRENT STATUS.
[2020-08-07] MEDS: PANTOPRAZOLE 40 MG TABLET.DR PO SCH (07:49)
[2020-08-07 08:00] VITALS: BP 136/83
[2020-08-07] MEDS ORDERED: HEPARIN SODIUM, PORCINE 5000 UNITS/1 ML VIAL IV ONE (08:00)
[2020-08-07] MEDS: THIAMINE HCL 100 MG TABLET PO SCH (08:49)
[2020-08-07] MEDS: CHLORHEXIDINE GLUCONATE 15 ML UDC MM SCH ×2 (08:49→16:53)
[2020-08-07] MEDS: NYSTATIN (PYXIS) 500,000 UNIT/5 ML ORAL.SUSP PO SCH ×3 (08:49→16:53)
[2020-08-07] MEDS: AMLODIPINE BESYLATE 10 MG TABLET PO SCH (08:49)
[2020-08-07] MEDS: FOLIC ACID 1 MG TABLET PO SCH (08:49)
[2020-08-07] MEDS: PANTOPRAZOLE 40 MG VIAL IV SCH (09:01)
--- NOTE | 2020-08-07 09:15 | NUR ---
RN NOTES PATIENT POTASSIUM LEVEL OF 3.2, RELAYED TO MD WITH ORDERS MADE AND CARRIED OUT.
[2020-08-07] MEDS: POTASSIUM CL. PREMIX PERIPHER. 50 ML IV SCH ×4 (09:34→12:20)
--- NOTE | 2020-08-07 10:50 | NUR ---
RN NOTES PATIENT C/O OF LEFT LOWER ABDOMINAL PAIN WITH PAIN SCALE OF 8/10. DUE PRN PAIN MEDICATION GIVEN, WILL CONTINUE TO MONITOR PAIN STATUS.
[2020-08-07] MEDS ORDERED: PIPERACILLIN /TAZOBACTAM 3.375 G in IV D5W 50 ML IV ONE (13:00)
--- NOTE | 2020-08-07 14:32 | NUR ---
RN NOTES PTT RESULT OF 70.6, NO CHANGES ON THE HEPARIN DRIP RATE. REPEAT PTT TOMORROW (08/08/20) IN AM ORDERED.
--- NOTE | 2020-08-07 15:09 | NUR ---
RN NOTES PATIENT C/O OF LEFT LOWER ABDOMINAL PAIN WITH PAIN SCALE OF 8/10. DUE PRN PAIN MEDICATION GIVEN, WILL CONTINUE TO MONITOR PAIN STATUS.
[2020-08-07 16:00] VITALS: BP 139/90
[2020-08-07] MEDS: IV D5 LR 1,000 ML IV PRN (18:14)
--- NOTE | 2020-08-07 18:59 | NUR ---
MS RN CLOSING NOTES PATIENT IN BED, AWAKE, A&O X 4. ON ROOM AIR, TOLERATING WELL. ON HEPARIN DRIP AT 2200 UNITS/HR INFUSING VIA PICC LINE ON PATIENT'S LONNIE. WITH IV OF D5LRS 1L X 75CC/HR INFUSING WELL ON PATIENT'S RIGHT HAND. NO INFILTRATION NOTED, NO REDNESS NOTED. ON NPO EXCEPT MEDS REINFORCED. SAFETY PRECAUTIONS OBSERVED: BED ON LOWEST LOCKED POSITION. KEPT CALL LIGHT WITHIN EASY REACH. KEPT SIDE RAILS UP X 2. NO COMPLAINTS OF PAIN AT THIS TIME. STILL FOR GI CONSULT, AWARE. ENDORSED TO INSURANCE CLERK NURSE FOR CONTINUITY OF CARE.
--- NOTE | 2020-08-07 19:08 | NUR ---
RN NOTES: RECEIVED AWAKE ON BED, A/0X4,FRIENDLY,PLEASANT PERSONALITY, ORIENTED TO UNIT AND STAFF,WITH BRP, AMBULATORY , STAND BY ASSIST, STILL ON NPO EXCEPT MEDS, TAKING ICE CHIPS IVF OF D5LR AT 75ML/HR, CANNULA ON RH G#22 PATENT, ON HEPARIN DRIP AT 2200 UNITS=44 ML/HR VIA PICC-LONNIE, STILL PENDING FOR GI CONSULT, AWAITING TO BE SEEN BY .FOR MORNING LAB TEST.PER ENDORSEMENT MORPHINE GIVEN [id number] FOR PAIN AND STARTED ON CLEAR LIQUIDS. -FALL,SAFETY AND ASPIRATION PRECAUTION OBSERVED.
[2020-08-07 19:26] LABS: BASOPHILS # (AUTO) 0.1 /CMM (0.0-0.2); BASOPHILS % (AUTO) 1.1 % (0.0-2.0); EOSINOPHILS % (AUTO) 1.5 % (0.0-6.0); HEMATOCRIT 34 % (39-51); HEMOGLOBIN 11.6 g/dL (13.5-17.5); LYMPHOCYTES # (AUTO) 1.7 /CMM (0.8-4.8); LYMPHOCYTES % (AUTO) 13.6 % (20.0-44.0); MEAN CORPUSCULAR HGB CONC 34 g/dl (31.0-36.0); MEAN CORPUSCULAR VOLUME 101 fL (80-96); MONOCYTES # (AUTO) 0.9 /CMM (0.1-1.30); MONOCYTES % (AUTO) 6.8 % (2.0-12.0); NEUTROPHILS # (AUTO) 9.6 /CMM (1.8-8.9); PLATELET COUNT (AUTO) 296 /CMM (150-450); RED BLOOD CELL COUNT(AUTO) 3.42 MIL/uL (4.5-6.0); WHITE BLOOD COUNT (AUTO) 12.5 K/uL (4.3-11.0)
[2020-08-07 19:56] LABS: ALBUMIN 2.6 g/dL (3.4-5.0); BILIRUBIN,TOTAL 1.4 mg/dL (0.2-1.0); CALCIUM, SERUM 8.2 mg/dL (8.5-10.1); CREATININE 0.8 mg/dL (0.6-1.3); POTASSIUM 3.5 mmol/L (3.5-5.1); TOTAL PROTEIN, SERUM 6.6 g/dL (6.4-8.2)
[2020-08-07 20:00] VITALS: BP 121/94
[2020-08-07] MEDS: PIPERACILLIN /TAZOBACTAM 3.375 G in IV D5W 100 ML IV SCH (20:52)
--- NOTE | 2020-08-07 23:29 | NUR ---
RN NOTES: ABLE TO SLEEP THEN HE WAKE TO PASS URINE, COMPLAINED OF GENERALIZED PAIN AND ASKED FOR HIS MORPHINE, BP-145/79 SPO2-94%RA IA-62, PRN AND DUE MEDICATION GIVEN.
--- NOTE | 2020-08-08 02:42 | NUR ---
RN NOTES: KEPT ON CLOSE WATCH AND FREQUENT VISUAL CHECK, NO SIGN OF BLEEDING, URINE OUTPUT 800CC, CONTINUE ON IV FLUIDS.ABLE TO SLEEP AND REST AFTER PRN INJECTION.
[2020-08-08] MEDS: HEPARIN INFUSION/D5W 500 ML IV PRN ×2 (04:16→15:29)
--- NOTE | 2020-08-08 04:34 | NUR ---
RN NOTES: HEPARIN INFUSION CONSUMED, CONTINUE WITH THE SAME RATE, HANG NEW BAG AT 0416.WITNESSED BY RN/CN.
[2020-08-08] MEDS: PIPERACILLIN /TAZOBACTAM 3.375 G in IV D5W 100 ML IV SCH ×3 (04:52→21:38)
[2020-08-08] MEDS: MORPHINE SULFATE INJ 4 MG/ML DISP.SYRIN IV PRN ×5 (04:59→22:38)
--- NOTE | 2020-08-08 05:09 | NUR ---
RN NOTES: -AWAKE COMPLAINED OF PAIN AND DISCOMFORT, ASKED FOR HIS PRN PAIN MEDICATION -LATEST BP 148/89 FL-60 SPO2-98%, DUE METOPROLOL GIVEN.
[2020-08-08] MEDS: METOPROLOL TARTRATE 50 MG TABLET PO SCH ×4 (05:12→17:15)
--- NOTE | 2020-08-08 05:47 | NUR ---
RN NOTES: -WHILE ADMISSION DISCHARGE RN DOING HIS BLOOD TEST, NOTICED REDNESS ON THE RH IV SITE. -EXPLAINED TO HIM WE NEED TO RE-SITE THE IV CANNULA, HE SAID "I WILL ONLY AGREE TO THE PERSON I TRUST AND I THINK THAT IS YOU', ABLE TO INSERT ON THE RFA G#22, 1 ATTEMPT WITH GOOD BACK FLOW.HE WAS VERY DELIGHTFUL AND HAPPY.IVF RESUMED ON THE RFA.
[2020-08-08 06:10] LABS: BASOPHILS # (AUTO) 0.1 /CMM (0.0-0.2); BASOPHILS % (AUTO) 0.8 % (0.0-2.0); EOSINOPHILS % (AUTO) 2.3 % (0.0-6.0); HEMATOCRIT 34 % (39-51); HEMOGLOBIN 11.4 g/dL (13.5-17.5); LYMPHOCYTES # (AUTO) 1.9 /CMM (0.8-4.8); LYMPHOCYTES % (AUTO) 16.6 % (20.0-44.0); MEAN CORPUSCULAR HGB CONC 34 g/dl (31.0-36.0); MEAN CORPUSCULAR VOLUME 103 fL (80-96); MONOCYTES # (AUTO) 0.7 /CMM (0.1-1.30); MONOCYTES % (AUTO) 6.4 % (2.0-12.0); NEUTROPHILS # (AUTO) 8.6 /CMM (1.8-8.9); NEUTROPHILS % (AUTO) 73.9 % (43.0-81.0); PLATELET COUNT (AUTO) 286 /CMM (150-450); RED BLOOD CELL COUNT(AUTO) 3.31 MIL/uL (4.5-6.0); WHITE BLOOD COUNT (AUTO) 11.6 K/uL (4.3-11.0)
[2020-08-08 06:44] LABS: CALCIUM, SERUM 8.5 mg/dL (8.5-10.1); CREATININE 0.8 mg/dL (0.6-1.3); MAGNESIUM 2.4 mg/dL (1.8-2.4); POTASSIUM 3.4 mmol/L (3.5-5.1)
--- NOTE | 2020-08-08 06:51 | NUR ---
RN NOTES: ABLE TO GO BACK TO SLEEP, KEPT RESTED, NO SIGN OF BLEEDING IN THE ORIFICE,NEEDS ATTENDED.BLOOD TEST DONE IN THE MORNING, ENDORSED TO FOLLOW UP RESULT, URINE-1100,ENDORSED FOR CONTINUITY OF CARE.
--- NOTE | 2020-08-08 07:55 | NUR ---
MS RN OPENING NOTES RECEIVED PATIENT ASLEEP IN BED, EASY TO AROUSE. ALERT AND ORIENTED X 4. NO SIGNS OR SYMPTOMS OF DISTRESS NOTED. NO SOB. IV ACCESS LONNIE PICC PATENT AND INTACT RUNNING HEPARIN DRIP RUNNING @2200 UNITS. SAFETY MEASURES IN PLACE, BED LOCKED AT LOWEST POSITION, SIDE RAILS UP X 2. WILL CONTINUE TO MONITOR PATIENT THROUGHOUT SHIFT.
[2020-08-08 08:00] VITALS: BP 127/81
--- NOTE | 2020-08-08 08:14 | NUR ---
MS RN NOTES PTT 67.7 @0520. NO CHANGE.
[2020-08-08] MEDS: POTASSIUM CL. PREMIX PERIPHER. 50 ML IV SCH ×4 (08:32→11:13)
[2020-08-08] MEDS: CHLORHEXIDINE GLUCONATE 15 ML UDC MM SCH ×2 (08:43→17:15)
[2020-08-08] MEDS: PANTOPRAZOLE 40 MG VIAL IV SCH (08:43)
[2020-08-08] MEDS: FOLIC ACID 1 MG TABLET PO SCH (08:44)
[2020-08-08] MEDS: NYSTATIN (PYXIS) 500,000 UNIT/5 ML ORAL.SUSP PO SCH ×3 (08:44→17:15)
[2020-08-08] MEDS: AMLODIPINE BESYLATE 10 MG TABLET PO SCH (08:44)
[2020-08-08] MEDS: THIAMINE HCL 100 MG TABLET PO SCH (08:44)
--- NOTE | 2020-08-08 11:21 | NUR ---
MS RN NOTES PATIENT WAS TRANSPORTED WITH STABLE VITAL SIGNS TO RADIOLOGY FOR CT OF ABDOMEN WITHOUT CONTRAST VIA WHEELCHAIR.
--- NOTE | 2020-08-08 11:30 | NUR ---
MS RN NOTES PATIENT RETURNED FROM CT OF ABDOMEN IN STABE CONDITION. WILL CONTINUE WITH PLAN OF CARE.
--- NOTE | 2020-08-08 13:19 | NUR ---
MS RN NOTES MADE DR. HALLE WU AWARE OF CT OF ABDOMEN RESULT, WITH ORDER FOR CLEAR LIQUIDS. ORDERS READ BACK AND CARRIED OUT. ALSO MADE DR. EVANS AWARE OF CT ABD RESULT.
[2020-08-08 16:00] VITALS: BP 137/75
--- NOTE | 2020-08-08 18:56 | NUR ---
MS RN CLOSING NOTES PATIENT IS AWAKE, SITTING IN CHAIR NEXT TO BEDSIDE. ALERT AND ORIENTED X 4. NO SIGNS OR SYMPTOMS OF DISTRESS NOTED. C/O PAIN /10. PAIN MANAGEMENT MEDICATION GIVEN PRESCRIBED. NO SOB. TOLERATING FLUIDS WELL WITH IV ACCESS LONNIE PICC PATENT AND INTACT RUNNING HEPARIN DRIP @2200UNITS/ HR PER PROTOCOL. SAFETY MEASURES IN PLACE, BED LOCKED AT LOWEST POSITION, SIDE RAILS UP X 2. CALL LIGHT IS WITHIN REACH. WILL ENDORSE CONTINUITY OF CARE TO NEXT SHIFT.
--- NOTE | 2020-08-08 20:03 | NUR ---
MS RN OPENING NOTE PATIENT IN SITTING ON CHAIR A/OX4; ABLE TO MAKE NEEDS KNOWN. TOLERATING ROOM AIR WELL WITH NO SOB. DENIES PAIN OR DISCOMFORT AT THIS TIME. PATIENT MAINTAINED ON CLEAR LIQUID DIET. LONNIE PICCLINE HPARIN DRIP AT 2200 UNITS/HR. RFA #22G D5LR @ 75ML/HR; PATENT AND INTACT. SAFETY MEASURES IN PLACE: BED IN LOWEST LOCKED POSITION, SIDE RAILS UPX2 CALL LIGHT WITHIN EASY REACH. PATIENT IN STABLE CONDITION, WILL CONTINUE PLAN OF CARE.
[2020-08-08 20:09] VITALS: BP 145/100
--- NOTE | 2020-08-08 22:38 | NUR ---
MS RN NOTE PATIENT C/O LLQ ABD 8/10 PAIN. ADMINISTERED MORPHINE ORDERED WILL CONTINUE TO REASSESS FOR PAIN IN 30 MINUTES.
[2020-08-09] MEDS: METOPROLOL TARTRATE 50 MG TABLET PO SCH ×4 (00:11→17:09)
[2020-08-09] MEDS: MORPHINE SULFATE INJ 4 MG/ML DISP.SYRIN IV PRN ×4 (02:55→19:57)
--- NOTE | 2020-08-09 02:55 | NUR ---
MS RN NOTE -PAIN PATIENT C/O LLQ ABD 10/05 PAIN. ADMINISTERED MORPHINE ORDERED WILL CONTINUE TO REASSESS FOR PAIN IN 30 MINUTES.
[2020-08-09] MEDS: HEPARIN INFUSION/D5W 500 ML IV PRN (04:12)
[2020-08-09] MEDS: IV D5 LR 1,000 ML IV PRN (04:19)
[2020-08-09] MEDS: PIPERACILLIN /TAZOBACTAM 3.375 G in IV D5W 100 ML IV SCH ×3 (04:22→21:10)
[2020-08-09 05:53] LABS: BASOPHILS # (AUTO) 0.1 /CMM (0.0-0.2); BASOPHILS % (AUTO) 0.8 % (0.0-2.0); EOSINOPHILS % (AUTO) 3.3 % (0.0-6.0); HEMATOCRIT 32 % (39-51); HEMOGLOBIN 10.8 g/dL (13.5-17.5); LYMPHOCYTES # (AUTO) 1.8 /CMM (0.8-4.8); LYMPHOCYTES % (AUTO) 17.8 % (20.0-44.0); MEAN CORPUSCULAR HGB CONC 34 g/dl (31.0-36.0); MEAN CORPUSCULAR VOLUME 102 fL (80-96); MONOCYTES # (AUTO) 0.8 /CMM (0.1-1.30); MONOCYTES % (AUTO) 8.2 % (2.0-12.0); NEUTROPHILS # (AUTO) 6.9 /CMM (1.8-8.9); NEUTROPHILS % (AUTO) 69.9 % (43.0-81.0); PLATELET COUNT (AUTO) 318 /CMM (150-450); RED BLOOD CELL COUNT(AUTO) 3.14 MIL/uL (4.5-6.0); WHITE BLOOD COUNT (AUTO) 9.9 K/uL (4.3-11.0)
--- NOTE | 2020-08-09 06:22 | NUR ---
MS RN OPENING NOTE PATIENT IN BED A/OX4; ABLE TO MAKE NEEDS KNOWN. TOLERATING ROOM AIR WELL WITH NO SOB. PATIENT MAINTAINED ON CLEAR LIQUID DIET. LONNIE PICCLINE HEPARIN DRIP AT 2200 UNITS/HR. R HAND #22G ZOSYN @ 25ML/HR; PATENT AND INTACT. SAFETY MEASURES IN PLACE: BED IN LOWEST LOCKED POSITION, SIDE RAILS UPX2 CALL LIGHT WITHIN EASY REACH. PATIENT IN STABLE CONDITION, WILL ENDORSE PLAN OF CARE TO MORNING RN.
[2020-08-09 06:25] LABS: CALCIUM, SERUM 8.4 mg/dL (8.5-10.1); CREATININE 0.9 mg/dL (0.6-1.3); POTASSIUM 3.5 mmol/L (3.5-5.1)
--- NOTE | 2020-08-09 07:32 | NUR ---
MS RN OPENING NOTES RECEIVED PATIENT AWAKE IN BED, EASY TO AROUSE. ALERT AND ORIENTED X 4. NO SIGNS OR SYMPTOMS OF DISTRESS NOTED. NO SOB. IV ACCESS LONNIE PICC PATENT AND INTACT RUNNING HEPARIN DRIP RUNNING @2200 UNITS. SAFETY MEASURES IN PLACE, BED LOCKED AT LOWEST POSITION, SIDE RAILS UP X 2. WILL CONTINUE TO MONITOR PATIENT THROUGHOUT SHIFT.
[2020-08-09 08:00] VITALS: BP 139/76
[2020-08-09] MEDS: PANTOPRAZOLE 40 MG VIAL IV SCH (08:50)
[2020-08-09] MEDS: THIAMINE HCL 100 MG TABLET PO SCH (08:50)
[2020-08-09] MEDS: FOLIC ACID 1 MG TABLET PO SCH (08:51)
[2020-08-09] MEDS: AMLODIPINE BESYLATE 10 MG TABLET PO SCH (08:52)
[2020-08-09] MEDS: NYSTATIN (PYXIS) 500,000 UNIT/5 ML ORAL.SUSP PO SCH ×3 (08:52→16:32)
[2020-08-09] MEDS: APIXABAN 5 MG TABLET PO SCH ×2 (08:52→21:09)
[2020-08-09] MEDS: CHLORHEXIDINE GLUCONATE 15 ML UDC MM SCH ×2 (09:15→16:32)
--- NOTE | 2020-08-09 09:30 | NUR ---
MS RN NOTES PATIENT WAS SEEN BY DR. HALLE WU, WITH NEW ORDERS TO STOP HEPARIN DRIP AND START ON ELIQUIS PO, ADVANCE DIET TO FULL LIQUID AND NORCO 5-325MG PO PRN FOR PAIN 4-7. ORDERS READ BACK AND CARRIED OUT.
[2020-08-09 11:07] LABS: *SPE A/G RATIO 0.8 (0.7-1.7); *SPE ALBUMIN 2.6 g/dL (2.9-4.4); *SPE ALPHA-1-GLOBULIN 0.4 g/dL (0.0-0.4); *SPE ALPHA-2-GLOBULIN 1.3 g/dL (0.4-1.0); *SPE BETA GLOBULIN 0.9 g/dL (0.7-1.3); *SPE GLOBULIN, TOTAL 3.3 g/dL (2.2-3.9); *SPE M-SPIKE Not Observed g/dL (Not Observed); *SPEGAMMA GLOBULIN 0.6 g/dL (0.4-1.8)
[2020-08-09] MEDS: HYDROCODONE/APAP 5/325MG TABLET PO PRN ×2 (15:34→22:54)
[2020-08-09 16:00] VITALS: BP 109/68
--- NOTE | 2020-08-09 18:51 | NUR ---
MS RN CLOSING NOTES PATIENT IS AWAKE, SITTING IN CHAIR NEXT TO BEDSIDE. ALERT AND ORIENTED X 4. NO SIGNS OR SYMPTOMS OF DISTRESS NOTED. PAIN MANAGEMENT MEDICATION GIVEN PRESCRIBED. NO SOB. TOLERATING FLUIDS WELL WITH IV ACCESS LONNIE PICC PATENT AND INTACT. SAFETY MEASURES IN PLACE, BED LOCKED AT LOWEST POSITION, SIDE RAILS UP X 2. CALL LIGHT IS WITHIN REACH. WILL ENDORSE CONTINUITY OF CARE TO NEXT SHIFT.
--- NOTE | 2020-08-09 19:55 | NUR ---
MSRN FULLY AWAKE VERBALIZES LEFT LOWER ABD PAIN MORPHINE 4MG IVP ADMINISTERED ORDERED. BEDREST AND SAFETY PRECAUTIONS EMPHASIZED, WELL UNDERSTOOD. PRESENT IVF INFUSING WELL VIA RIGHT UPPER ARM PICC LINE.
[2020-08-09 20:00] VITALS: BP 128/77
[2020-08-09 20:30] VITALS: BP 128/77
--- NOTE | 2020-08-09 23:01 | NUR ---
MSRN VERBALIZES LEFT LOWER ABDOMINAL PAIN RADIATING TO RIGHT SHOULDER, NORCO 1 TAB PO GIVEN REQUESTED, WILL CALL IF PAIN WORSENS. REMINDED BEDREST FOR NOW AND SAFETY PRECAUTIONS EMPHASIZED. CLOSELY WATCHED.
[2020-08-10] VITALS: BP 148/65
[2020-08-10 00:14] VITALS: BP 148/65
[2020-08-10] MEDS: METOPROLOL TARTRATE 50 MG TABLET PO SCH ×5 (00:38→23:58)
[2020-08-10] MEDS: MORPHINE SULFATE INJ 4 MG/ML DISP.SYRIN IV PRN ×4 (00:38→20:08)
[2020-08-10] MEDS: IV D5 LR 1,000 ML IV PRN ×2 (03:48→16:44)
[2020-08-10] MEDS: PIPERACILLIN /TAZOBACTAM 3.375 G in IV D5W 100 ML IV SCH ×3 (05:12→21:08)
--- NOTE | 2020-08-10 05:39 | NUR ---
MSRN SLEEPS ON/OFF. PRESENT IVF INFUSING WELL VIA PICC LINE RIGHT UPPER ARM. ALL NEEDS ATTENDED.
--- NOTE | 2020-08-10 06:30 | NUR ---
MSRN VERBALIZES RIGHT SHOULDERTHIS TIME SCALE OF 8/10. MORPHINE 4 MG IVP ADMINISTERED ORDERED. PREFERS SITTING ON THE CHAIR. PRESENT IVF CONTINUED. V/S STABLE. OTHER DUE MEDS GIVEN. AM LABS DRAWN EARLIER FROM PICC LINE. KEPT COMFORTABLE.
[2020-08-10 06:43] LABS: BASOPHILS # (AUTO) 0.1 /CMM (0.0-0.2); BASOPHILS % (AUTO) 1.1 % (0.0-2.0); EOSINOPHILS % (AUTO) 4.6 % (0.0-6.0); HEMATOCRIT 32 % (39-51); HEMOGLOBIN 10.9 g/dL (13.5-17.5); LYMPHOCYTES # (AUTO) 1.7 /CMM (0.8-4.8); LYMPHOCYTES % (AUTO) 22.7 % (20.0-44.0); MEAN CORPUSCULAR HGB CONC 34 g/dl (31.0-36.0); MEAN CORPUSCULAR VOLUME 103 fL (80-96); MONOCYTES # (AUTO) 0.6 /CMM (0.1-1.30); MONOCYTES % (AUTO) 8.2 % (2.0-12.0); NEUTROPHILS # (AUTO) 4.7 /CMM (1.8-8.9); NEUTROPHILS % (AUTO) 63.4 % (43.0-81.0); PLATELET COUNT (AUTO) 330 /CMM (150-450); WHITE BLOOD COUNT (AUTO) 7.4 K/uL (4.3-11.0)
[2020-08-10 06:54] LABS: CALCIUM, SERUM 8.7 mg/dL (8.5-10.1); CREATININE 0.9 mg/dL (0.6-1.3); POTASSIUM 3.9 mmol/L (3.5-5.1)
--- NOTE | 2020-08-10 07:47 | NUR ---
MS RN OPENING NOTES RECEIVED PATIENT SITTING IN CHAIR, AWAKE. A/O X 4. ON ROOM AIR - TOLERATING WELL. NO SOB NOTED. IV ACCESS TO LONNIE - PICC LINE - PATENT AND INTACT. PATIENT IS AMBULATORY. SAFETY MEASURES IN PLACE. WILL CONTINUE TO MONITOR.
[2020-08-10 08:11] VITALS: BP 128/76
[2020-08-10] MEDS: FOLIC ACID 1 MG TABLET PO SCH (08:32)
[2020-08-10] MEDS: CHLORHEXIDINE GLUCONATE 15 ML UDC MM SCH ×2 (08:32→17:15)
[2020-08-10] MEDS: NYSTATIN (PYXIS) 500,000 UNIT/5 ML ORAL.SUSP PO SCH ×3 (08:32→17:15)
[2020-08-10] MEDS: PANTOPRAZOLE 40 MG VIAL IV SCH (08:32)
[2020-08-10] MEDS: THIAMINE HCL 100 MG TABLET PO SCH (08:32)
[2020-08-10] MEDS: AMLODIPINE BESYLATE 10 MG TABLET PO SCH (08:33)
[2020-08-10] MEDS: APIXABAN 5 MG TABLET PO SCH ×2 (08:38→21:08)
[2020-08-10] MEDS: HYDROCODONE/APAP 5/325MG TABLET PO PRN ×3 (08:52→22:28)
[2020-08-10 16:00] VITALS: BP 121/76
--- NOTE | 2020-08-10 18:36 | NUR ---
MS RN CLOSING NOTES PATIENT CURRENTLY SITTING AT THE EDGE OF THE BED, AWAKE. A/O X 4. ON ROOM AIR - TOLERATING WELL. NO SOB NOTED. IV ACCESS TO LONNIE - PICC LINE - PATENT AND INTACT, RUNNING D5LR @ 75ML/HR. PATIENT IS AMBULATORY. SAFETY MEASURES IN PLACE. WILL ENDORSE TO NUCLEAR PROCESS ENGINEER NURSE FOR GERARDO.
--- NOTE | 2020-08-10 19:40 | NUR ---
MSRN FULLY AWAKE, STILL WITH ON/OFF LOWER LEFT ABDOMINAL PAIN. ABLE TO TOLERATE SOFT DIET. NO N/V. ADMINISTERED MS 4MG IVP AT 2007. BEDREST INSTRUCTED. PRESENT IVF INFUSING WELL VIA RIGHT UPPER ARM PICC LINE. ALL NEEDS ATTENDED. CLOSELY WATCHED
[2020-08-10 20:00] VITALS: BP 130/79
[2020-08-10 23:55] VITALS: BP 151/88
[2020-08-11] MEDS: MORPHINE SULFATE INJ 4 MG/ML DISP.SYRIN IV PRN ×3 (00:19→10:11)
--- NOTE | 2020-08-11 01:46 | NUR ---
MSRN SLEEPING APPEARS COMFORTABLE. HAD ANOTHER MS 4MG AT OO25.FOR NECK PAIN AND LEFT LOWER ABD PAIN. CLOSELY WATCHED
[2020-08-11 03:06] LABS: *ANTITHROMBIN III AG 61 % (72-124); *DILUTE PROTHROMBIN TIME (dPT) 47.7 sec (0.0-55.0); *dPT CONFIRM RATIO 0.94 Ratio (0.00-1.40); *dRVVT 49.6 sec (0.0-47.0); FACTOR VIII ACTIVITY 342 % (56-140); PROTEIN C ACTIVITY 93 % (73-180)
[2020-08-11] MEDS: PIPERACILLIN /TAZOBACTAM 3.375 G in IV D5W 100 ML IV SCH ×2 (05:53→12:15)
--- NOTE | 2020-08-11 06:25 | NUR ---
HENRIK KEBEDE ON A CHAIR. WAS JUST MEDICATED WITH MORPHINE FOR RIGHT SHOULDER PAIN. IVF CONTINUED. BEDREST INSTRUCTED
[2020-08-11] MEDS: METOPROLOL TARTRATE 50 MG TABLET PO SCH ×2 (06:48→12:15)
[2020-08-11] MEDS ORDERED: PANTOPRAZOLE 40 MG TABLET.DR PO SCH (07:30)
--- NOTE | 2020-08-11 07:32 | NUR ---
MS RN OPENING NOTES RECEIVED PATIENT LYING IN BED, RESTING. EASY TO AROUSE. A/O X 4. ON ROOM AIR - TOLERATING WELL. NO SOB NOTED. IV ACCESS TO LONNIE - PICC LINE - PATENT AND INTACT - RUNNING D5LR @ 75ML/HR. PATIENT IS AMBULATORY. SAFETY MEASURES IN PLACE. WILL CONTINUE TO MONITOR.
[2020-08-11 07:39] LABS: CREATININE 0.9 mg/dL (0.6-1.3); POTASSIUM 3.8 mmol/L (3.5-5.1)
[2020-08-11 08:00] VITALS: BP 148/82
[2020-08-11] MEDS: FOLIC ACID 1 MG TABLET PO SCH (08:00)
[2020-08-11] MEDS: THIAMINE HCL 100 MG TABLET PO SCH (08:00)
[2020-08-11] MEDS: NYSTATIN (PYXIS) 500,000 UNIT/5 ML ORAL.SUSP PO SCH ×3 (08:00→16:56)
[2020-08-11] MEDS: CHLORHEXIDINE GLUCONATE 15 ML UDC MM SCH ×2 (08:00→16:56)
[2020-08-11] MEDS: APIXABAN 5 MG TABLET PO SCH (08:03)
[2020-08-11] MEDS: AMLODIPINE BESYLATE 10 MG TABLET PO SCH (08:20)
[2020-08-11] MEDS: HYDROCODONE/APAP 5/325MG TABLET PO PRN ×2 (08:23→12:25)
[2020-08-11] MEDS: IV D5 LR 1,000 ML IV PRN (09:59)
[2020-08-11 12:15] VITALS: BP 137/77
[2020-08-11] MEDS ORDERED: ACET325T53 PO (15:09)
[2020-08-11] MEDS ORDERED: PANT40TA2 PO (15:09)
[2020-08-11] MEDS ORDERED: APIX5TAB PO (15:09)
--- NOTE | 2020-08-11 17:06 | NUR ---
MS MILL DRESSER NOTE PATIENT DISCHARGED VIA PRIVATE CAR @ 1700. PATIENT STABLE, A/O X4. NO SOB NOTED. NO DISTRESS NOTED. NO PAIN NOTED. SKIN INTACT. PATIENT IS AMBULATORY WITH STEADY GAIT. ALL EXITCARE AND EDUCATION GONE OVER WITH PATIENT. PATIENT VERBALIZED UNDERSTANDING. PRESCRIPTION GIVEN TO PATIENT TO FILL AT PHARMACY. PATIENT'S OWN MEDICATION PICKED UP FROM PHARMACY AND HANDED TO PATIENT. PICC LINE REMOVED, WRISTBAND REMOVED. PATIENT ACCOMPANIED TO LOBBY BY MYSELF AND FRIEND, MARISELA. CHARGE NURSE AND MD AWARE.
[2020-08-16] MEDS ORDERED: APIXABAN 5 MG TABLET PO SCH (09:00)
== END 2020-08-11 17:00 | disposition home or self-care (01) | DRG 244 ==
LOC: TELE 15:05 → UNDOADMIN 15:05 → TELE 20:32 → MED 08-05 10:00
PROVIDERS: ADMIT Nurse Practitioner Acute Care
PROC: 02HV33Z Insertion of Infusion Device into Superior Vena Cava, Percutaneous Approach (ICD-10-PCS; principal; 2020-08-05)
PROC: B548ZZA Ultrasonography of Superior Vena Cava, Guidance (ICD-10-PCS; 2020-08-05)
DX: K57.20 Diverticulitis of large intestine with perforation and abscess without bleeding (principal); K55.039 Acute (reversible) ischemia of large intestine, extent unspecified; I82.890 Acute embolism and thrombosis of other specified veins; I71.2 Thoracic aortic aneurysm, without rupture; E44.1 Mild protein-calorie malnutrition; D50.9 Iron deficiency anemia, unspecified; F10.10 Alcohol abuse, uncomplicated; E83.39 Other disorders of phosphorus metabolism; K76.0 Fatty (change of) liver, not elsewhere classified; E83.42 Hypomagnesemia; E87.1 Hypo-osmolality and hyponatremia; K21.9 Gastro-esophageal reflux disease without esophagitis; I25.10 Atherosclerotic heart disease of native coronary artery without angina pectoris; K20.90 Esophagitis, unspecified without bleeding; K42.9 Umbilical hernia without obstruction or gangrene; K29.70 Gastritis, unspecified, without bleeding; K80.20 Calculus of gallbladder without cholecystitis without obstruction; I10 Essential (primary) hypertension; R74.01 Elevation of levels of liver transaminase levels; D53.9 Nutritional anemia, unspecified; E66.9 Obesity, unspecified; Z68.29 Body mass index [BMI] 29.0-29.9, adult; K40.90 Unilateral inguinal hernia, without obstruction or gangrene, not specified as recurrent; Z98.890 Other specified postprocedural states; E78.5 Hyperlipidemia, unspecified; N28.1 Cyst of kidney, acquired; Y90.9 Presence of alcohol in blood, level not specified; E87.6 Hypokalemia; Z79.01 Long term (current) use of anticoagulants; B96.89 Other specified bacterial agents as the cause of diseases classified elsewhere; B95.0 Streptococcus, group A, as the cause of diseases classified elsewhere; Z20.822 Contact with and (suspected) exposure to COVID-19; F17.200 Nicotine dependence, unspecified, uncomplicated
CPT/HCPCS: 36415; 74178; 75574; 76700-TC; 80048-TC; 80053-TC; 80061-TC; 80202-TC; 81001; 82272-TC; 82378; 82728-TC; 82784; 83540-TC; 83605-TC; 83690-TC; 83735-TC; 84100-TC; 84155; 84165; 84439-TC; 84443-TC; 84484-TC; 85025-TC; 85240; 85300; 85301; 85303; 85613; 85670; 85705; 85730-TC; 85732; 86334; 86706; 86803; 87040-TC; 87081-TC; 87186-TC; 87340; 93307-TC; A4216; C9113; G0378; J1170; J1644; J1650; J1956; J2060; J2185; J2270; J2405; J2543; J3370; J3475; J3480; J3490; J7030; J7040; J7050; J7060; Q9967